=== PATIENT | female | born 1965 | race Caucasian/White ===

== ENCOUNTER → 2017-07-16 | Outpatient (CLI) | payer OTHER | LOC: CAT 08:48 | DX: K76.0 Fatty (change of) liver, not elsewhere classified (principal) ==

== ENCOUNTER 2017-08-14 05:25 | Inpatient (IN) | payer OTHER ==
[~2017-08-14] VITALS: Ht 167.6 cm; Wt 109.8 kg
--- NOTE | ~2017-08-14 | O ---
[facility] [place] [address] OPERATIVE REPORT Name: JAKE THOMAS Room #: 441-P [facility] IN M.R.#: [id number] Admission: 08/15/17 Attend Phys: Antwon Thompson MD Discharge: 08/16/17 Date of : 67 Report #: [id number] THIS REPORT FOR: //name// CC: Antwon Moraes MD DATE OF SERVICE: 08/14/2017 PREOPERATIVE DIAGNOSIS: Incisional hernia. POSTOPERATIVE DIAGNOSIS: Incisional hernia. PROCEDURE PERFORMED: Laparoscopic repair of incisional hernia. ANESTHESIA: General. SURGEON: Antwon Thompson MD COMPLICATIONS: None. ESTIMATED BLOOD LOSS: 5 mL. PROCEDURE NOTE: With the patient under general anesthesia, abdomen was prepped and draped in sterile fashion. Ioban was used. IV antibiotic was administered. Timeout was performed. Cutdown incision was made in the left upper quadrant at the lateral edge of the rectus sheath. The anterior rectus sheath was opened under visualization. The skin incision here is about an inch in length. A 0 Vicryl suture placed on the rectus sheath. Muscle was spread. The posterior sheath was then grasped. The posterior sheath was then opened and 0 Vicryl suture placed on the posterior sheath. This opening is into a free cavity. No harm to the underlying tissue. A Origin balloon trocar was then placed. CO2 was administered. The patient had adhesion to the mid abdomen from that point on down to the lower center part of the abdomen. A 5 mm trocar was placed in the left upper quadrant higher up in the Origin balloon trocar. A second 5 mm trocar was placed in the right upper quadrant. Using Harmonic scalpel and grasper, the fat that was stuck to the wall was freed. Once this was dissected free, the patient had 2 defects at the umbilical level. The entire width is about 5 cm. A loose blue Prolene suture was identified in this area. The patient did have some scarring from previous inferiorly. These were taken down. No other fascia defect identified. A Ventralight ST mesh was used with the echo balloon. This was placed through the cutdown site and the Origin trocar. The balloon trocar was removed. The mesh was placed through the fascia under visualization. No harm to the underlying tissue. This balloon trocar was then replaced. The mesh was then properly oriented. The balloon portion was then pulled through a small 2 mm incision using a suture retrieval needle. The [address] [address] OPERATIVE REPORT Name: JAKE THOMAS Room #: 441-P [facility] IN M.R.#: [id number] Admission: 08/15/17 Attend Phys: Antwon Thompson MD Discharge: 08/16/17 Date of : 67 Report #: [id number] echo balloon was then inflated. The mesh was then pressed up against the wall. The mesh appears to be seated well. That covered the defect well. The mesh was tacked with SorbaFix. A total of 30 SorbaFix was used. Care was taken to avoid the inferior epigastric vessel. A 11 mm scope 30-degree was used for most of the surgery and then some couple areas a 5 mm scope was used. The balloon part of the mesh was retrieved. The balloon was then deflated, removed through the balloon trocar site. It came out complete. It did appear that the mesh was slightly skew downward. Because of this, transfascial sutures were placed at the 12, 1:30 and 2 o'clock position and also the 10 o'clock position. Three separate transfascial sutures were placed with Strasburg-Ross CV2 suture. Two separate transfascial sutures were then also placed in the lower abdomen holding the lower portion of the mesh in place. The edges had already been tacked down. After the mesh was placed, the CO2 was evacuated. Trocars then removed. The cutdown side, the fascia was closed with 0 PDS [id number] in the posterior sheath x 2. Anterior sheath was then also closed with 0 PDS [id number] x 2. Skin was irrigated. Skin at the trocar sites was then closed with 5-0 PDS. The site where the suture retrieval needle was placed were closed with Dermabond. Dermabond was also placed over the trocar incisions. Band-Aid was applied. The patient tolerated the procedure well and was taken to recovery room. Abdominal binder was placed. <ELECTRONICALLY SIGNED> By: Antwon Thompson MD 08/28/17 [id number] [id number] Antwon Thompson MD /nt
[~2017-08-14 05:25] MED LIST: ADVAIR HFA 230M12 GM INH; ALBUTEROL2.5 MG/31 INH; PRILOSEC OTC20 MG PO; PROAIR HFA8.5 GM INH; SINGULAIR 10 MG10 M1 PO
[2017-08-14 07:49] VITALS: BP 148/69
[2017-08-14 15:18] VITALS: BP 158/94
[2017-08-14 19:18] VITALS: BP 157/88
[2017-08-15 03:35] VITALS: BP 160/94
[2017-08-15 09:00] VITALS: BP 126/70
[2017-08-15 16:18] VITALS: BP 141/76
[2017-08-15 19:00] VITALS: BP 117/58
[2017-08-16 03:29] VITALS: BP 111/68
[2017-08-16 08:00] VITALS: BP 146/73
[2017-08-16] MEDS ORDERED: PERCOCET PO (10:02)
[2017-08-16] MEDS ORDERED: VALIUM5 MG PO (10:03)
[2017-08-16] MEDS ORDERED: ZOFRAN ODT4 MG DISSOLVE (10:03)
[2017-08-16 10:13] VITALS: BP 146/73
== END 2017-08-16 11:17 | disposition home or self-care (01) | DRG 355 ==
LOC: OR 05:25 → 4S 05:25 → TBA 05:26 → OR 15:00 → 4S 15:22 → OR 15:55 → 4S 08-15 17:18 → ENTRNSPT 08-16 11:04 → EDTRNSPTSTS 08-16 11:09 → 4S 08-16 11:17
PROC: 0WUF4JZ Supplement Abdominal Wall with Synthetic Substitute, Percutaneous Endoscopic Approach (ICD-10-PCS; principal; 2017-08-15)
DX: K43.2 Incisional hernia without obstruction or gangrene (principal); J45.909 Unspecified asthma, uncomplicated; K21.9 Gastro-esophageal reflux disease without esophagitis; E66.9 Obesity, unspecified; Z68.39 Body mass index [BMI] 39.0-39.9, adult; Z87.891 Personal history of nicotine dependence; Z90.49 Acquired absence of other specified parts of digestive tract
CPT/HCPCS: 10102; 50010; 50101; 50249; 50386; 50455; 50555; 50687; 50978; 53065; 53307; 53335; 54022; 54118; 56525; 56526; 56530; 57092; 62110; 62900; 70005

== ENCOUNTER → 2018-08-05 | Outpatient (CLI) | payer OTHER ==
[~2018-08-05] MED LIST changes: +PERCOCET PO; +VALIUM5 MG PO; +ZOFRAN ODT4 MG DISSOLVE
== END ==
LOC: CAT 08:06
DX: K76.0 Fatty (change of) liver, not elsewhere classified (principal); K45.8 Other specified abdominal hernia without obstruction or gangrene

== ENCOUNTER → 2020-02-24 | Outpatient (CLI) | payer OTHER | LOC: LAB 09:15 | PROVIDERS: ATTEND Neuromusculoskeletal Medicine & OMM | DX: Z20.828 Contact with and (suspected) exposure to other viral communicable diseases (principal); R05 Cough; R50.9 Fever, unspecified ==